=== PATIENT | female | born 1945 | race Caucasian/White ===

== ENCOUNTER → 2016-08-22 | Outpatient (CLI) | payer OTHER ==
[~2016-08-22] MED LIST: AMLO-110 PO; ATEN50TA8; LEVO75TA5 PO; MULT-506 PO; RIZA5TAB10 PO
--- NOTE | 2016-08-22 14:08 | MAMMOGRAPHY REPORT ---
BILATERAL DIGITAL SCREENING MAMMOGRAM TOMOSYNTHESIS WITH CAD: 08/22/2016 CLINICAL HISTORY: Asymptomatic. Personal history of breast cancer. TECHNIQUE: Breast tomosynthesis in addition to standard 2D mammography was performed. Current study was also evaluated with a Computer Aided Detection (CAD) system. COMPARISON: Comparison is made to exams dated: 08/20/2015 mammogram, 08/18/2014 mammogram, 08/15/2013 mammogram, 08/13/2012 mammogram - [facility], 08/12/2011 mammogram, and 07/25/2009 mamm ogram - [facility]. BREAST COMPOSITION: There are scattered areas of fibroglandular density in both breasts. FINDINGS: No suspicious masses, calcifications, or areas of architectural distortion are noted in e ither breast. There has been no significant interval change compared to prior exams. There are stab le postsurgical changes in the left upper outer quadrant from prior lumpectomy. Bilateral benign-ap pearing calcifications are not significantly changed. IMPRESSION: ACR BI-RADS CATEGORY 2: BENIGN There is no mammographic evidence of malignancy. A 1 year screening mammogram is recommended. The p atient will receive written notification of the results. Approximately 10% of breast cancers are not detected with mammography. A negative mammographic repor t should not delay biopsy if a clinically suggestive mass is present. Brianna Sheets M.D. ah/:08/22/2016 08:04:59 Manufacturing Assembler: Judith COSME(Nanda)([place]), [facility] letter sent: Normal 1/2 BI-RADS Code: ACR BI-RADS Category 2: Benign
== END | disposition home or self-care (01) ==
LOC: C.MAMM 07:24
PROVIDERS: ATTEND Surgery
DX: Z12.31 Encounter for screening mammogram for malignant neoplasm of breast (principal); Z85.3 Personal history of malignant neoplasm of breast; Z08 Encounter for follow-up examination after completed treatment for malignant neoplasm

== ENCOUNTER → 2016-09-08 | Outpatient (CLI) | payer OTHER ==
[2016-09-08 12:49] LABS: BASO % 0.5 %; BASO ABS # 0.03 K/uL (0-0.2); COMPLETE YES; EOS % 3.3 %; HEMATOCRIT 42.4 % (37-47); IG% 0.2 %; LYMPH ABS # 1.28 K/uL (1.2-3.4); MEAN CELL VOLUME 94.4 fL (80-100); MEAN CORPUSCULAR HEMOGLOBIN 32.7 pg (25-34); MEAN CORPUSCULAR HGB CONC 34.7 g/dl (32-36); MEAN PLATELET VOLUME 12.3 fL (7.4-10.4); MONO % 6.2 %; NEUT % 67.8 %; PLATELET COUNT 203 K/uL (130-400); RED BLOOD COUNT 4.49 M/uL (4.2-5.4); WHITE BLOOD COUNT 5.81 K/uL (4.8-10.8)
[2016-09-08 12:56] LABS: ALT/SGPT 22 U/L (12-78); BLOOD UREA NITROGEN 19 mg/dl (7-18); BUN/CREATININE RATIO 20.4 (10-20); CALCIUM 9.9 mg/dl (8.5-10.1); CARBON DIOXIDE 27 mmol/L (21-32); CHLORIDE 104 mmol/L (98-107); CHOLESTEROL 182 mg/dl (0-200); CREATININE 0.93 mg/dl (0.60-1.20); GLUCOSE 97 mg/dl (70-99); POTASSIUM 3.4 mmol/L (3.5-5.1); SODIUM 141 mmol/L (136-145); TRIGLYCERIDES 219 mg/dl (0-150); VERY LOW DENSITY LIPOPROT CALC 44 mg/dl
[2016-09-08 13:04] LABS: ALB/GLOB RATIO 1.2 (0.9-2); ALKALINE PHOSPHATASE 117 U/L (45-117); AST/SGOT 16 U/L (15-37); CHOLESTEROL/HDL RATIO 3.4; HDL CHOLESTEROL 54 mg/dl; LDL CHOLESTEROL CALCULATED 84 mg/dl
[2016-09-08 13:13] LABS: URINE APPEARANCE CLEAR (CLEAR); URINE BILIRUBIN NEG (NEG); URINE COLOR YELLOW; URINE EPITHELIAL CELL AUTO 0-5 /lpf (0-5); URINE NITRITE NEG (NEG); URINE PH 8.5 (4.5-7.5); UROBILINOGEN NEG (NEG); ZZUR CULT IF INDIC CLEAN CATCH NO
[2016-09-08 13:21] LABS: MANUAL MICROSCOPIC REQUIRED? NO; REVIEW REQ? NO
--- NOTE | 2016-09-15 12:57 | CODING QUERY MEDICAL NECESSITY ---
SUPPORTING DIAGNOSIS NEEDED A supporting diagnosis is required for the test/procedure performed on this patient in order for us to be reimbursed by the patient's insurance. Please provide a supporting diagnosis for the following test/procedure listed below next to the test name along with your signature. *If there is no additional diagnosis for this patient that would support the following test/procedure please document that below next to the test/procedure. Test(s)/Procedure(s) that require a supporting diagnosis: * VITAMIN D 25-HYDROXY DIAGNOSIS: * DOS: 09/08/16 Provider Signature: Date: Thank you Sharla Dior Health Information Management Once completed, please kindly fax back to [phone] For questions please call [phone]
== END | disposition home or self-care (01) ==
LOC: C.LABBFT 07:58
PROVIDERS: ATTEND Internal Medicine Endocrinology, Diabetes & Metabolism
DX: E06.3 Autoimmune thyroiditis (principal); I31.3 Pericardial effusion (noninflammatory); E78.00 Pure hypercholesterolemia, unspecified; Z86.39 Personal history of other endocrine, nutritional and metabolic disease

== ENCOUNTER → 2016-10-10 | Outpatient (CLI) | payer OTHER | END | disposition home or self-care (01) | LOC: C.LABBFT 10:44 | PROVIDERS: ATTEND Internal Medicine | DX: I31.3 Pericardial effusion (noninflammatory) (principal) ==

== ENCOUNTER → 2016-10-24 | Outpatient (CLI) | payer OTHER ==
--- NOTE | 2016-10-24 13:48 | DIAGNOSTIC IMAGING REPORT ---
RIGHT HAND MIN 3 VIEWS ROUTINE CLINICAL HISTORY: R76.8 LUPE [id number] right hand pain COMPARISON: None. DISCUSSION: The bones are mildly osteopenic. No fractures are visualized. There is minor joint space narrowing at the level of the distal to phalangeal joints. There are no erosive changes. 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 IMPRESSION: 1. No acute fractures 2. No evidence of erosive disease 3. Lunate cyst Electronically signed by: Oscar Willard M.D. 10/24/2016 1:46 PM Dictated Date/Time: 10/24/2016 1:45 PM
[2016-10-24 15:11] LABS: URINE APPEARANCE CLEAR (CLEAR); URINE BILIRUBIN NEG (NEG); URINE COLOR YELLOW; URINE NITRITE NEG (NEG); URINE SPECIFIC GRAVITY 1.007 (1.000-1.030); UROBILINOGEN NEG (NEG)
[2016-10-24 15:12] LABS: MANUAL MICROSCOPIC REQUIRED? NO; REVIEW REQ? NO
[2016-10-29 03:10] LABS: ANTI-CENTROMERE AB <1.0 NEG AI (<1.0 NEG); ANTI-SS-A <1.0 NEG AI (<1.0 NEG); ANTI-SS-B <1.0 NEG AI (<1.0 NEG); DNA ds CRITHIDIA NEGATIVE (NEGATIVE); MYELOPEROXIDASE AB <1.0 AI (<1.0); Sm Antibody <1.0 NEG AI (<1.0 NEG)
[2016-10-29 12:49] LABS: ANA TITER 1:40 TITER (<1:40)
== END | disposition home or self-care (01) ==
LOC: C.RAD1850 13:35
PROVIDERS: ATTEND Internal Medicine Rheumatology
DX: R76.8 Other specified abnormal immunological findings in serum (principal); M79.641 Pain in right hand

== ENCOUNTER 2017-03-22 22:42 | Emergency (ER) | payer OTHER ==
[~2017-03-22] VITALS: Ht 167.6 cm; Wt 68.0 kg
[2017-03-22 22:49] VITALS: TEMP 36.8; Ht 167.6 cm; Wt 68.0 kg
[2017-03-22] MEDS ORDERED: IBUPROFEN 200 MG TAB PO STA (23:18)
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
[2017-03-23 01:23] VITALS: BP 174/99; PULSE 57; O2SAT 98
--- NOTE | 2017-03-23 06:33 | DIAGNOSTIC IMAGING REPORT ---
LEFT HAND MIN 3 VIEWS ROUTINE CLINICAL HISTORY: Left hand pain status post trauma COMPARISON: None. DISCUSSION: No acute fractures or dislocations are visualized. 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 IMPRESSION: No acute fractures or dislocations identified. Electronically signed by: Oscar Willard M.D. 03/23/2017 6:31 AM Dictated Date/Time: 03/23/2017 6:31 AM
== END 2017-03-23 01:47 | disposition home or self-care (01) ==
LOC: C.EDB 22:43 → C.EDD 03-23 01:47
DX: S62.655A Nondisplaced fracture of middle phalanx of left ring finger, initial encounter for closed fracture (principal); V19.3XXA Pedal cyclist (driver) (passenger) injured in unspecified nontraffic accident, initial encounter; Y93.55 Activity, bike riding; I10 Essential (primary) hypertension; E03.9 Hypothyroidism, unspecified; Z79.899 Other long term (current) drug therapy

== ENCOUNTER → 2017-07-09 | Outpatient (CLI) | payer OTHER ==
[2017-07-09 19:00] LABS: BLOOD UREA NITROGEN 18 mg/dl (7-18); CALCIUM 10.2 mg/dl (8.5-10.1); CARBON DIOXIDE 31 mmol/L (21-32); CREATININE 0.95 mg/dl (0.60-1.20); GLUCOSE 95 mg/dl (70-99); POTASSIUM 3.6 mmol/L (3.5-5.1); SODIUM 140 mmol/L (136-145)
== END | disposition home or self-care (01) ==
LOC: C.LABBFT 11:18
PROVIDERS: ATTEND Internal Medicine
DX: E04.2 Nontoxic multinodular goiter (principal); M81.0 Age-related osteoporosis without current pathological fracture; Z86.39 Personal history of other endocrine, nutritional and metabolic disease

== ENCOUNTER → 2017-07-18 | Outpatient (CLI) | payer OTHER | END | disposition home or self-care (01) | LOC: C.LAB1850 08:50 | PROVIDERS: ATTEND Internal Medicine | DX: E83.52 Hypercalcemia (principal) ==

== ENCOUNTER → 2017-07-21 | Outpatient (CLI) | payer OTHER ==
--- NOTE | 2017-07-21 09:24 | DIAGNOSTIC IMAGING REPORT ---
CHEST 2 VIEWS ROUTINE HISTORY: 71 years-old Female COUGH acute cough COMPARISON: Chest radiograph 05/23/2011 TECHNIQUE: PA and lateral views of the chest FINDINGS: The cardiomediastinal and hilar silhouettes are within normal limits. There is no pneumothorax, pleural effusion, focal airspace consolidation or overt pulmonary edema. The bones of the chest appear grossly intact. Degenerative changes are seen within the shoulders and spine. IMPRESSION: No acute process. The above report was generated using voice recognition software. It may contain grammatical, syntax or spelling errors. Electronically signed by: Ivan Padilla M.D. 07/21/2017 9:22 AM Dictated Date/Time: 07/21/2017 9:21 AM
[2017-07-21 10:15] LABS: BASO % 0.2 %; BASO ABS # 0.01 K/uL (0-0.2); EOS % 1.7 %; EOS ABS # 0.08 K/uL (0-0.5); HEMATOCRIT 40.1 % (37-47); HEMOGLOBIN 14.2 g/dL (12.0-16.0); IG# 0.01 K/uL (0.00-0.02); LYMPH % 28.4 %; LYMPH ABS # 1.32 K/uL (1.2-3.4); MEAN CORPUSCULAR HEMOGLOBIN 32.9 pg (25-34); MEAN CORPUSCULAR HGB CONC 35.4 g/dl (32-36); MEAN PLATELET VOLUME 10.8 fL (7.4-10.4); MONO % 9.1 %; MONO ABS # 0.42 K/uL (0.11-0.59); NEUT % 60.4 %; PLATELET COUNT 191 K/uL (130-400); RED CELL DISTRIBUTION WIDTH CV 12.6 % (11.5-14.5); RED CELL DISTRIBUTION WIDTH SD 43.3 fL (36.4-46.3); WHITE BLOOD COUNT 4.64 K/uL (4.8-10.8)
[2017-07-21 10:42] LABS: BLOOD UREA NITROGEN 14 mg/dl (7-18); CALCIUM 9.9 mg/dl (8.5-10.1); CARBON DIOXIDE 30 mmol/L (21-32); CREATININE 0.85 mg/dl (0.60-1.20); GLUCOSE 85 mg/dl (70-99); POTASSIUM 3.4 mmol/L (3.5-5.1); SODIUM 141 mmol/L (136-145)
== END | disposition home or self-care (01) ==
LOC: C.RAD1850 09:12
PROVIDERS: ATTEND Nurse Practitioner
DX: R05 Cough (principal); E83.52 Hypercalcemia

== ENCOUNTER → 2017-08-11 | Outpatient (CLI) | payer OTHER ==
--- NOTE | 2017-08-11 11:26 | DIAGNOSTIC IMAGING REPORT ---
SOFT TISS HEAD/NECK-THYROID CLINICAL HISTORY: 71 years-old Female presenting with E04.2 Multinodular [id number]. TECHNIQUE: Real-time grayscale and color Doppler ultrasound imaging of the thyroid and base of the neck was performed. COMPARISON: 08/17/2014. FINDINGS: Right lobe: Heterogeneous due to multiple thyroid nodules. The right lobe of the thyroid measures 4.7 x 1.3 x 1.6 cm. The largest nodule is heterogeneously hyperechoic, peripherally calcified and measures 1.3 x 0.9 x 0.7 cm, previously 1.2 cm (low suspicion to intermediate suspicion pattern due to coarse calcification). No parenchymal hyperemia. Left lobe: Heterogeneous due to multiple thyroid nodules. The left lobe of the thyroid measures 5.4 x 1.5 x 1.6 cm. The largest nodule is partially cystic, partially solid consistent with a spongiform morphology and measures 1.5 x 1.0 x 1.0 cm, previously 0.9 cm (very low suspicion pattern). No parenchymal hyperemia. Isthmus: The isthmus measures 2 mm in thickness. No nodules. IMPRESSION: Multinodular thyroid. Slight interval increase in size of the largest nodules. Continued follow-up recommended. Electronically signed by: Tung Mendoza M.D. 08/11/2017 11:25 AM Dictated Date/Time: 08/11/2017 11:20 AM
== END | disposition home or self-care (01) ==
LOC: C.ULTR 09:59
PROVIDERS: ATTEND Internal Medicine Endocrinology, Diabetes & Metabolism
DX: E04.2 Nontoxic multinodular goiter (principal)

== ENCOUNTER → 2017-08-24 | Outpatient (CLI) | payer OTHER ==
--- NOTE | 2017-08-24 14:50 | MAMMOGRAPHY REPORT ---
BILATERAL DIGITAL SCREENING MAMMOGRAM TOMOSYNTHESIS WITH CAD: 08/24/2017 CLINICAL HISTORY: Asymptomatic. Personal history of breast cancer. Routine screening. Patient has no complaints. TECHNIQUE: Breast tomosynthesis in addition to standard 2D mammography was performed. Current study was also evaluated with a Computer Aided Detection (CAD) system. COMPARISON: Comparison is made to exams dated: 08/22/2016 mammogram, 08/20/2015 mammogram, 08/18/2014 m ammogram, 08/15/2013 mammogram, 08/13/2012 mammogram - [facility], and 08/12/2011 mammog carmina - [facility]. BREAST COMPOSITION: There are scattered areas of fibroglandular density in both breasts. FINDINGS: There is expected architectural distortion in the upper outer posterior left breast and lef t axillary region, denoting areas of prior surgery. There are benign coarse and rim calcifications i n the left breast. No new suspicious mass, architectural distortion or cluster of suspicious microca lcifications is seen. IMPRESSION: ACR BI-RADS CATEGORY 1: NEGATIVE There is no mammographic evidence of malignancy. A 1 year screening mammogram is recommended. The pa tient will receive written notification of the results. Approximately 10% of breast cancers are not detected with mammography. A negative mammographic report should not delay biopsy if a clinically suggestive mass is present. Brenda Loomis M.D. ay/:08/24/2017 12:32:03 Revenue Tax Specialist: Sabina SMITH)([place]), [facility] letter sent: Normal 1/2 BI-RADS Code: ACR BI-RADS Category 1: Negative
== END ==
LOC: C.MAMM 09:13
PROVIDERS: ATTEND Obstetrics & Gynecology
DX: Z85.3 Personal history of malignant neoplasm of breast (principal); Z12.31 Encounter for screening mammogram for malignant neoplasm of breast

== ENCOUNTER → 2017-09-01 | Outpatient (CLI) | payer OTHER | END | disposition home or self-care (01) | LOC: C.MAMM 13:08 | PROVIDERS: ATTEND Internal Medicine Endocrinology, Diabetes & Metabolism | DX: M81.0 Age-related osteoporosis without current pathological fracture (principal); M85.89 Other specified disorders of bone density and structure, multiple sites ==

== ENCOUNTER → 2017-10-21 | Outpatient (CLI) | payer OTHER ==
[2017-10-21 12:29] LABS: CALCIUM 9.5 mg/dl (8.5-10.1)
[2017-10-21 12:30] LABS: ALBUMIN 3.6 gm/dl (3.4-5.0)
== END | disposition home or self-care (01) ==
LOC: C.LABBFT 08:27
PROVIDERS: ATTEND Internal Medicine Endocrinology, Diabetes & Metabolism
DX: M81.0 Age-related osteoporosis without current pathological fracture (principal)

== ENCOUNTER → 2017-11-10 | Outpatient (CLI) | payer OTHER ==
[2017-11-10 10:41] LABS: CREATININE 1.04 mg/dl (0.60-1.20)
== END | disposition home or self-care (01) ==
LOC: C.LAB 09:15
PROVIDERS: ATTEND Internal Medicine Endocrinology, Diabetes & Metabolism
DX: M81.0 Age-related osteoporosis without current pathological fracture (principal)

== ENCOUNTER → 2017-11-11 | Outpatient (CLI) | payer OTHER ==
[2017-11-11 09:38] LABS: BASO % 0.6 %; BASO ABS # 0.03 K/uL (0-0.2); EOS % 1.3 %; EOS ABS # 0.07 K/uL (0-0.5); HEMATOCRIT 44.3 % (37-47); HEMOGLOBIN 15.6 g/dL (12.0-16.0); IG# 0.01 K/uL (0.00-0.02); LYMPH % 25.6 %; LYMPH ABS # 1.36 K/uL (1.2-3.4); MEAN CELL VOLUME 94.7 fL (80-100); MEAN CORPUSCULAR HEMOGLOBIN 33.3 pg (25-34); MEAN CORPUSCULAR HGB CONC 35.2 g/dl (32-36); MEAN PLATELET VOLUME 11.3 fL (7.4-10.4); MONO % 9.2 %; MONO ABS # 0.49 K/uL (0.11-0.59); NEUT % 63.1 %; NEUT ABS # 3.36 K/uL (1.4-6.5); PLATELET COUNT 185 K/uL (130-400); RED CELL DISTRIBUTION WIDTH CV 12.8 % (11.5-14.5); RED CELL DISTRIBUTION WIDTH SD 44.1 fL (36.4-46.3); WHITE BLOOD COUNT 5.32 K/uL (4.8-10.8)
== END | disposition home or self-care (01) ==
LOC: C.LAB1850 07:36
PROVIDERS: ATTEND Internal Medicine
DX: I10 Essential (primary) hypertension (principal); E78.00 Pure hypercholesterolemia, unspecified

== ENCOUNTER 2022-12-08 05:43 | Inpatient (IN) ==
[2022-12-08] MEDS ORDERED: SODIUM CHLORIDE 0.9% 1000ML 1,000 ML IV SCH (06:00)
[2022-12-08 06:37] LABS: Basophils # (auto) 0.04 K/uL (0-0.2); Basophils % (auto) 0.6 %; Eosinophils # (auto) 0.01 K/uL (0-0.50); Eosinophils % (auto) 0.2 %; Hematocrit (blood only) 45.7 % (37.0-47.0); Hemoglobin 16.1 g/dl (12.0-16.0); Immature Granulocytes # (auto) 0.02 K/uL (0.01-0.20); Immature Granulocytes % (auto) 0.3 %; Lymphocytes # (auto) 0.38 K/uL (1.2-3.4); Lymphocytes % (auto) 5.9 %; Mean Corpuscular Hemoglobin 33.2 pg (25.0-34.0); Mean Corpuscular Hgb Conc 35.2 g/dL (32.0-36.0); Mean Corpuscular Volume 94.2 fL (80.0-100.0); Mean Platelet Volume 11.3 fL (9.4-12.4); Monocytes # (auto) 0.33 K/uL (0.11-0.59); Monocytes % (auto) 5.1 %; Neutrophils # (auto) 5.69 K/uL (1.40-6.50); Neutrophils % (auto) 87.9 %; Platelet Count 130 K/uL (130-400); RDW Coefficient of Variation 12.5 % (11.5-14.5); RDW Standard Deviation 43.3 fL (36.4-46.3); Red Blood Count 4.85 M/uL (4.20-5.40); White Blood Count 6.47 K/ul (4.8-10.8)
--- NOTE | 2022-12-08 06:48 | XRay Report ---
XR chest 1V portable CLINICAL HISTORY: Sepsis TECHNIQUE: Single frontal radiograph of the chest was obtained. Comparison: Comparison is made to chest radiograph 12/10/2020 FINDINGS: No lines and tubes are seen. The cardiomediastinal silhouette is normal. There is increased airspace opacity in the right lower lung. No evidence of pleural effusion or pneumothorax. IMPRESSION: Increasing airspace opacity in the right lower lung may represent atelectasis, pneumonia, and/or aspi ration. ACT 112: Negative or not required by law. Electronically signed by: Holger Leach M.D. 12/08/2022 6:46 AM
[2022-12-08 06:57] LABS: Albumin Level 4.1 gm/dl (3.4-5.0); BUN Creatinine Ratio 15.4 (10-20); Bilirubin Direct 0.2 mg/dl (0-0.2); Bilirubin,Total 0.8 mg/dl (0.2-1.0); Calcium 9.1 mg/dl (8.6-10.3); Creatinine Clr Calc Pharmacy 53.1 ml/min; Est GFR (Non-African American) 61.3 ml/min; Magnesium 2.1 mg/dl (1.7-2.4); Potassium 3.6 mmol/L (3.5-5.1)
[2022-12-08] MEDS ORDERED: cefTRIAXone SODIUM 2,000 MG/70 ML BAG IV STA (07:02)
[2022-12-08 07:03] LABS: Troponin I High Sensitivity 6.8 pg/ml (0-14)
[2022-12-08 07:06] LABS: Appearance Urine Clear (Clear); Bilirubin Urine Negative (Negative); Blood Urine Negative (Negative); Color Urine Yellow; Glucose Urine UA Negative (Negative); Ketones Urine Negative (Negative); Leukocyte Esterase Urine Negative (Negative); Nitrite Urine Negative (Negative); Protein Urine Negative (Negative); Urobilinogen Urine Negative (Negative)
[2022-12-08 07:07] LABS: Procalcitonin 0.48 ng/ml (0-0.5)
[2022-12-08 07:18] LABS: Influenza A virus by PCR Negative (Neg); Influenza B virus by PCR Negative (Neg); RSV by PCR Negative (Neg); SARS CoV2 RNA(COVID-19) Ceph NEGATIVE (Negative)
[2022-12-08 07:37] LABS: Lyme Ab IgG w/WB Rflx Negative (Negative); Lyme Ab IgM w/WB Rflx Negative (Negative)
--- NOTE | 2022-12-08 07:45 | Emergency Department Note ---
Impression & Plan Fever ED Provider Note INFORMANT: Patient and ED PROVIDER(S): Jere Sauceda MD CHIEF COMPLAINT: Fever PLAN: Disposition: Admitted Condition: Good Outpatient prescription management: none Referral: None MEDICAL DECISION MAKING: Patient presented because of fever. A work-up was initiated. On clinical examination she has a bull's-eye rash on the right leg this is concerning for Lyme disease. Patient had cultures obtained. She was empirically given IV Rocephin. She also had a chest x-ray performed and there was a concern for a right lower lobe infiltrate. Patient does have a mild cough. Patient did receive IV doxycycline as well. I discussed possibility of inpatient versus outpatient treatment. Patient was hydrated. Nursing attempted to get the patient up for an ambulatory trial but she was too weak. She was given Tylenol as she spiked a fever. The patient will need further management in the hospital. Consultation was made with the [facility]ist service. Patient was evaluated in the ER admitted for further management. Discussed with manager women After review of the information above and other included data, I feel the patient requires admission. Triage Nursing notes reviewed and agree them. Vital Signs: reviewed and remarkable for fever Prior /Outside records reviewed: none Differential diagnosis: Lyme disease, tickborne illness, viral syndrome, otitis, pharyngitis, pneumonia, influenza, meningitis, urinary tract infection, sepsis, bacteremia, as well as other pathologies. Diagnostics, as interpreted by me: ECG: Twelve-lead ECG reveals a normal sinus rhythm at 94 bpm. Left axis deviation. No ST elevation or depression Cardiac Monitoring: Cardiac monitoring ordered by me: The patient was placed on continuous cardiac monitoring and observed. It revealed a normal sinus rhythm at 95 beats per minute without ectopy or evidence of dysrhythmia. Medical decision rules: none Imaging studies: Chest x-ray shows some mild congestion in the right base. HPI: The patient is a 77 year old female who presents to the Emergency Room with complaints of fever. This started yesterday and is worsening overnight. The patient also notes the following associated symptoms, urinary frequency, cough, increased confusion. Patient does have some mild dementia. The patient has used Tylenol for relieving factors. Current pain is rated as 0/10. also notes the presence of a bull's-eye rash on the right lower leg. Patient does spend a lot of time out in the garden. Pt denies LOC, headache, chills, diaphoresis, visual changes, neck pain, chest pain, breathing difficulties, nausea, vomiting, abdominal pain, back pain, melena, hematochezia, urinary symptoms, numbness, significant weakness, lymphadenopathy, or other complaints. PAST MEDICAL HISTORY: See Below, dementia, UTI PAST SURGICAL HISTORY: See Below, SOCIAL HISTORY: See Below, HOME MEDICATIONS: See Below ALLERGIES: See Below VITALS: See Below PHYSICAL EXAMINATION: GENERAL: Awake, alert, mildly ill -appearing, in no distress HENT: Normocephalic, atraumatic. Oropharynx unremarkable. EYES: Normal conjunctiva. Sclera non-icteric. NECK: Inspection normal. Non-tender. Supple. No nuchal rigidity. FROM. No masses. RESPIRATORY: Clear to auscultation. No wheezes. No rales. Normal respiratory effort. CARDIAC: Normal rate. Normal rhythm. No murmurs. No rubs. Extremities warm and well perfused. Pulses equal. No JVD. GI: Soft, non-distended. No tenderness to palpation. No rebound or guarding. No masses. RECTAL: Deferred. MUSCULOSKELETAL: Atraumatic. Chest examination reveals no tenderness. The back is symmetrical on inspection without obvious abnormality. There is no CVA tenderness to palpation. No joint edema. LOWER EXTREMITIES: Calves are equal size bilaterally and non-tender. No edema. No discoloration. NEURO: Normal sensorium. No sensory or motor deficits noted. SKIN: Patient has a bull's-eye rash on the right calf. No other rash or jaund ice noted. Past Med/Surg History Medical History Adrenal nodule LUPE positive Cardiac tamponade Dementia "Beginning stages" Edema History of COVID-19 12/2020- cough History of hyperparathyroidism Hx of breast cancer (~2007) left breast Hyperlipidemia Hypertension Hypothyroidism Osteoporosis Pericardial effusion 2019 - resolved Sleep apnea Mild - uses oral appliance Surgical History History of "History of surgical treatment for " on CCD History of cataract surgery B/L History of colonoscopy History of lumpectomy of left breast 2 lymph nodes removed also and had radiation History of parathyroid surgery History of wisdom tooth extraction Hx of lumpectomy left lumpectomy S/P eye surgery left S/P pericardiocentesis 08/2020 ([facility])- "Successful ultrasound guided pericardiocentesis with removal of 510 mL of bloody fluid" S/P right rotator cuff repair Family History Father Myocardial infarction COPD (chronic obstructive pulmonary disease) Stroke syndrome Senile dementia Mother Senile dementia Stroke syndrome Peripheral vascular disease Lung disease Aunt Breast cancer Other Coronary heart disease Denies family history of Ovarian cancer Prostate cancer Colorectal cancer Social History Smoking Status: Never smoker Second Hand Exposure: No; Do You Dip or Chew Tobacco: No; Hx Alcohol Use: Yes Alcohol type: wine Alcohol Intake Frequency: 4 or More x per/Week Alcohol Intake Frequency Comment: currently having 1 glass of wine at night Hx Substance Use: No Preferred Language: Singaporean Communication Ability: Effective Visual Impairment: No Limitations Hearing Ability: Use of Hearing Aid Motor Setter Required: No Beliefs That Will Affect Care: None marital status: Current Living Situation: Spouse current occupational status: retired current occupation: retired from occupation as a teacher Feels Safe at Home: Yes Childhood Exposure to Second-Hand Smoke: Yes Diet: regular caffeine: Yes Dental Care, Regularly: Yes Physical Activity Frequency: 3-4 Times per Week Seatbelt Use: always Sunscreen Use: No Assistive Devices: Glasses and Hearing Aid - Bilateral Allergies Allergies Allergy/AdvReac Type Severity Reaction Status Date / Time promethazine Allergy Intermediate delirious, Verified 12/08/22 10:08 couldn't stand topiramate Allergy Intermediate suicidal Verified 12/08/22 10:08 adhesive Allergy Mild BLISTERS Verified 12/08/22 10:08 capsaicin AdvReac Intermediate Diarrhea Verified 12/08/22 10:08 diclofenac AdvReac Intermediate Diarrhea Verified 12/08/22 10:08 lisinopril AdvReac Mild Cough Verified 12/08/22 10:08 pravastatin AdvReac Mild myalgia Verified 12/08/22 10:08 rosuvastatin [From Crestor] AdvReac Mild myalgia Verified 12/08/22 10:08 verapamil AdvReac Mild constipatio Verified 12/08/22 10:08 n Home Meds Home Medications Medication Instructions Recorded Confirmed potassium gluconate 595 mg (99 mg) 595 mg PO DAILY 01/11/19 12/08/22 tablet calcium 600 mg-D3 800 unit-mag11 1 tab PO BID 03/08/19 12/08/22 50 [id number]-[id number].borat tablet (Caltrate 600-D Plus Minerals) multivitamin (One-A-Day Essential 1 tab PO QAM 03/08/19 12/08/22 tablet) ibuprofen 200 mg tablet 600 mg PO DAILY PRN Severe Pain 07/17/22 12/08/22 (Scale Score 7-10) Previous Rx's Medication Instructions Recorded rizatriptan 5 mg disintegrating 5 mg PO DIRECTED PRN Headache 10/08/21 tablet #4 tabs memantine 10 mg tablet 10 mg PO BID 90 days #180 tabs 07/08/22 ezetimibe 10 mg tablet (Zetia) 10 mg PO QAM #90 tabs 08/18/22 levothyroxine 50 mcg tablet 50 mcg PO Q OTHER DAY #45 tabs 09/15/22 levothyroxine 75 mcg tablet 75 mcg PO Q OTHER DAY #45 tabs 09/15/22 losartan 50 mg tablet 50 mg PO QAM hypertension #90 tabs 09/16/22 amlodipine 10 mg tablet 10 mg PO QAM #90 tabs 11/04/22 atenolol 50 mg tablet 75 mg PO BID #270 tabs 11/24/22 Results & Data (ED) Vital Signs Vital Signs - 24 hr 12/08/22 05:51 12/08/22 06:04 12/08/22 06:05 Temperature 37.2 C Temperature Source Oral Pulse Rate 91 H 93 H Pulse Rate [Apical] Respiratory Rate 20 Respiratory Effort / Characteristics Non-Labored Spontaneous Respiratory Depth Normal Respiratory Pattern Regular Blood Pressure 124/64 Blood Pressure [Left Arm] Blood Pressure Mean 84 Blood Pressure Mean [Left Arm] Blood Pressure Position Sitting Blood Pressure Position [Left Arm] Pulse Oximetry 95 95 Oxygen Delivery Method Room Air Room Air Sepsis Recent Fever Within 48 Hours Yes Sepsis New/Unexplained Change in Mental Status N/A Sepsis Action Taken by Nursing No Action Required 12/08/22 06:12 12/08/22 08:10 12/08/22 09:39 Temperature 37.3 C 37.7 C H Temperature Source Oral Oral Pulse Rate Pulse Rate [Apical] 95 H 92 H Respiratory Rate 17 16 Respiratory Effort / Characteristics Non-Labored Spontaneous Respiratory Depth Normal Respiratory Pattern Regular Blood Pressure Blood Pressure [Left Arm] 149/81 H 170/89 H Blood Pressure Mean Blood Pressure Mean [Left Arm] 103 116 Blood Pressure Position Blood Pressure Position [Left Arm] Sitting Pulse Oximetry 95 96 Oxygen Delivery Method Room Air Room Air Sepsis Recent Fever Within 48 Hours Sepsis New/Unexplained Change in Mental Status Sepsis Action Taken by Nursing 12/08/22 10:28 12/08/22 11:04 Temperature 37.7 C H Temperature Source Oral Pulse Rate 90 Pulse Rate [Apical] 89 Respiratory Rate 18 Respiratory Effort / Characteristics Non-Labored Spontaneous Respiratory Depth Normal Respiratory Pattern Regular Blood Pressure Blood Pressure [Left Arm] 125/82 Blood Pressure Mean Blood Pressure Mean [Left Arm] 96 Blood Pressure Position Blood Pressure Position [Left Arm] Pulse Oximetry 93 Oxygen Delivery Method Room Air Sepsis Recent Fever Within 48 Hours Sepsis New/Unexplained Change in Mental Status Sepsis Action Taken by Nursing Laboratory Data 12/08/22 06:05 12/08/22 06:05 Lab Results 12/08/22 12/08/22 12/08/22 Range/Units 06:05 06:05 06:05 WBC 6.47 (4.8-10.8) K/ul RBC 4.85 (4.20-5.40) M/uL Hgb 16.1 H (12.0-16.0) g/dl Hct 45.7 (37.0-47.0) % MCV 94.2 (80.0-100.0) fL MCH 33.2 (25.0-34.0) pg MCHC 35.2 (32.0-36.0) g/dL RDW Std Deviation 43.3 (36.4-46.3) fL RDW Coeff of Mario 12.5 (11.5-14.5) % Plt Count 130 (130-400) K/uL MPV 11.3 (9.4-12.4) fL Immature Gran % (Auto) 0.3 % Neut % (Auto) 87.9 % Lymph % (Auto) 5.9 % Pine % (Auto) 5.1 % Eos % (Auto) 0.2 % Baso % (Auto) 0.6 % Neut # (Auto) 5.69 (1.40-6.50) K/uL Lymph # (Auto) 0.38 L (1.2-3.4) K/uL Pine # (Auto) 0.33 (0.11-0.59) K/uL Eos # (Auto) 0.01 (0-0.50) K/uL Baso # (Auto) 0.04 (0-0.2) K/uL Immature Gran # (Auto) 0.02 (0.01-0.20) K/uL Sodium 139 (136-145) mmol/L Potassium 3.6 (3.5-5.1) mmol/L Chloride 105 (98-107) mmol/L Carbon Dioxide 26 (21-32) mmol/L Anion Gap 8 (3-11) BUN 14 (6-23) mg/dl Creatinine 0.91 (0.6-1.2) mg/dl Est Cr Clr Drug Dosing 53.1 ml/min Est GFR ( Amer) 71.0 ml/min Est GFR (Non-Af Amer) 61.3 ml/min BUN/Creatinine Ratio 15.4 (10-20) Glucose 140 H (70-99(Fasting)) mg/dl Lactate 1.6 (0.4-2.0) mmol/L Calcium 9.1 (8.6-10.3) mg/dl Magnesium 2.1 (1.7-2.4) mg/dl Total Bilirubin 0.8 (0.2-1.0) mg/dl Direct Bilirubin 0.2 (0-0.2) mg/dl AST 95 H (13-39) U/L ALT 79 H (7-52) U/L Alkaline Phosphatase 96 (34-104) U/L Troponin I High Sens 6.8 (0-14) pg/ml Total Protein 7.0 (6.0-8.3) gm/dl Albumin 4.1 (3.4-5.0) gm/dl Procalcitonin (0-0.5) ng/ml Urine Color Urine Appearance (Clear) Urine pH (4.5-7.5) Ur Specific [place] (1.000-1.030) Urine Protein (Negative) Urine Glucose (UA) (Negative) Urine Ketones (Negative) Urine Blood (Negative) Urine Nitrite (Negative) Urine Bilirubin (Negative) Urine Urobilinogen (Negative) Ur Leukocyte Esterase (Negative) Anaplasma Smear See Comment Babesia Smear See Comment Lyme Disease IgG Ab (Negative) Lyme Disease IgM Ab (Negative) SARS-CoV-2 (PCR) (Negative) Influenza Type A (PCR) (Neg) Influenza Type B (PCR) (Neg) RSV (RT-PCR) (Neg) 12/08/22 12/08/22 12/08/22 Range/Units 06:05 06:05 06:45 WBC (4.8-10.8) K/ul RBC (4.20-5.40) M/uL Hgb (12.0-16.0) g/dl Hct (37.0-47.0) % MCV (80.0-100.0) fL MCH (25.0-34.0) pg MCHC (32.0-36.0) g/dL RDW Std Deviation (36.4-46.3) fL RDW Coeff of Mario (11.5-14.5) % Plt Count (130-400) K/uL MPV (9.4-12.4) fL Immature Gran % (Auto) % Neut % (Auto) % Lymph % (Auto) % Pine % (Auto) % Eos % (Auto) % Baso % (Auto) % Neut # (Auto) (1.40-6.50) K/uL Lymph # (Auto) (1.2-3.4) K/uL Pine # (Auto) (0.11-0.59) K/uL Eos # (Auto) (0-0.50) K/uL Baso # (Auto) (0-0.2) K/uL Immature Gran # (Auto) (0.01-0.20) K/uL Sodium (136-145) mmol/L Potassium (3.5-5.1) mmol/L Chloride (98-107) mmol/L Carbon Dioxide (21-32) mmol/L Anion Gap (3-11) BUN (6-23) mg/dl Creatinine (0.6-1.2) mg/dl Est Cr Clr Drug Dosing ml/min Est GFR ( Amer) ml/min Est GFR (Non-Af Amer) ml/min BUN/Creatinine Ratio (10-20) Glucose (70-99(Fasting)) mg/dl Lactate (0.4-2.0) mmol/L Calcium (8.6-10.3) mg/dl Magnesium (1.7-2.4) mg/dl Total Bilirubin (0.2-1.0) mg/dl Direct Bilirubin (0-0.2) mg/dl AST (13-39) U/L ALT (7-52) U/L Alkaline Phosphatase (34-104) U/L Troponin I High Sens (0-14) pg/ml Total Protein (6.0-8.3) gm/dl Albumin (3.4-5.0) gm/dl Procalcitonin 0.48 (0-0.5) ng/ml Urine Color Yellow Urine Appearance Clear (Clear) Urine pH 8.0 H (4.5-7.5) Ur Specific [place] 1.010 (1.000-1.030) Urine Protein Negative (Negative) Urine Glucose (UA) Negative (Negative) Urine Ketones Negative (Negative) Urine Blood Negative (Negative) Urine Nitrite Negative (Negative) Urine Bilirubin Negative (Negative) Urine Urobilinogen Negative (Negative) Ur Leukocyte Esterase Negative (Negative) Anaplasma Smear Babesia Smear Lyme Disease IgG Ab Negative (Negative) Lyme Disease IgM Ab Negative (Negative) SARS-CoV-2 (PCR) NEGATIVE (Negative) Influenza Type A (PCR) Negative (Neg) Influenza Type B (PCR) Negative (Neg) RSV (RT-PCR) Negative (Neg) 12/08/22 Range/Units 07:16 WBC (4.8-10.8) K/ul RBC (4.20-5.40) M/uL Hgb (12.0-16.0) g/dl Hct (37.0-47.0) % MCV (80.0-100.0) fL MCH (25.0-34.0) pg MCHC (32.0-36.0) g/dL RDW Std Deviation (36.4-46.3) fL RDW Coeff of Mario (11.5-14.5) % Plt Count (130-400) K/uL MPV (9.4-12.4) fL Immature Gran % (Auto) % Neut % (Auto) % Lymph % (Auto) % Pine % (Auto) % Eos % (Auto) % Baso % (Auto) % Neut # (Auto) (1.40-6.50) K/uL Lymph # (Auto) (1.2-3.4) K/uL Pine # (Auto) (0.11-0.59) K/uL Eos # (Auto) (0-0.50) K/uL Baso # (Auto) (0-0.2) K/uL Immature Gran # (Auto) (0.01-0.20) K/uL Sodium (136-145) mmol/L Potassium (3.5-5.1) mmol/L Chloride (98-107) mmol/L Carbon Dioxide (21-32) mmol/L Anion Gap (3-11) BUN (6-23) mg/dl Creatinine (0.6-1.2) mg/dl Est Cr Clr Drug Dosing ml/min Est GFR ( Amer) ml/min Est GFR (Non-Af Amer) ml/min BUN/Creatinine Ratio (10-20) Glucose (70-99(Fasting)) mg/dl Lactate (0.4-2.0) mmol/L Calcium (8.6-10.3) mg/dl Magnesium (1.7-2.4) mg/dl Total Bilirubin (0.2-1.0) mg/dl Direct Bilirubin (0-0.2) mg/dl AST (13-39) U/L ALT (7-52) U/L Alkaline Phosphatase (34-104) U/L Troponin I High Sens (0-14) pg/ml Total Protein (6.0-8.3) gm/dl Albumin (3.4-5.0) gm/dl Procalcitonin (0-0.5) ng/ml Urine Color Urine Appearance (Clear) Urine pH (4.5-7.5) Ur Specific [place] (1.000-1.030) Urine Protein (Negative) Urine Glucose (UA) (Negative) Urine Ketones (Negative) Urine Blood (Negative) Urine Nitrite (Negative) Urine Bilirubin (Negative) Urine Urobilinogen (Negative) Ur Leukocyte Esterase (Negative) Anaplasma Smear Cancelled Babesia Smear Cancelled Lyme Disease IgG Ab (Negative) Lyme Disease IgM Ab (Negative) SARS-CoV-2 (PCR) (Negative) Influenza Type A (PCR) (Neg) Influenza Type B (PCR) (Neg) RSV (RT-PCR) (Neg) Administered Medications Discontinued Medications Acetaminophen (Acetaminophen 500 Mg Tab) 1,000 mg PO NOW STA Stop: 12/08/22 10:14 Last Admin: 12/08/22 10:33 Dose: 1,000 mg Documented By: RAMSES Sodium Chloride (Nss 1000ml) 1,000 mls @ 999 mls/hr IV .[id number] GUY Stop: 12/08/22 07:00 Last Infusion: 12/08/22 07:16 Dose: 0 mls/hr Documented By: Admin: 12/08/22 06:14 Dose: 999 mls/hr Documented By: DEJON Ceftriaxone Sodium (Rocephin) 2,000 mg in 70 mls @ 140 mls/hr IV NOW STA Stop: 12/08/22 07:31 Last Infusion: 12/08/22 08:49 Dose: 0 mls/hr Documented By: Admin: 12/08/22 08:05 Dose: 140 mls/hr Documented By: RAMSES Doxycycline Hyclate 100 mg/ (Dextrose) 110 mls @ 50 mls/hr IV NOW STA Stop: 12/08/22 12:24 Last Infusion: 12/08/22 13:34 Dose: 0 mls/hr Documented By: Infusion: 12/08/22 12:00 Dose: 50 mls/hr Documented By: Infusion: 12/08/22 11:38 Dose: 0 mls/hr Documented By: Admin: 12/08/22 10:33 Dose: 50 mls/hr Documented By: RAMSES Imaging Data Radiologist's Impression: Chest X-Ray 12/08/22 05:57 XR chest 1V portable CLINICAL HISTORY: Sepsis TECHNIQUE: Single frontal radiograph of the chest was obtained. Comparison: Comparison is made to chest radiograph 12/10/2020 FINDINGS: No lines and tubes are seen. The cardiomediastinal silhouette is normal. There is increased airspace opacity in the right lower lung. No evidence of pleural effusion or pneumothorax. IMPRESSION: Increasing airspace opacity in the right lower lung may represent atelectasis, pneumonia, and/or aspiration. ACT 112: Negative or not required by law. Electronically signed by: Holger Leach M.D. 12/08/2022 6:46 AM Liver Ultrasound 12/08/22 10:42 US liver CLINICAL HISTORY: ast/alt elevation TECHNIQUE: Multiple real-time sonographic images of the right upper quadrant were obtained. Comparison: None available at the time of this dictation. FINDINGS: The liver is diffusely homogenous with normal contour and echogenicity. There is a complex cyst measuring 2.1 x 1.9 x 2.4 cm. No intrahepatic ductal dilatation is seen. Linear hyperechoic foci with posterior shadowing are identified layering dependently within the gallbladder, which are consistent with gallstones. The gallbladder wall is not thickened. There is no pericholecystic fluid present. A sonographic Tinoco's sign was not elicited by the hygiene assistant. The common duct measures 0.7 cm in diameter at the level of the hepatic artery. Pancreatic cystic lesions are seen measuring 5 and 7 mm, respectively. The right kidney shows normal echogenicity, cortical thickness and renal contour. The right kidney shows no evidence of hydronephrosis or mass. No ascites or free fluid is seen in Woods's pouch. IMPRESSION: 1. No acute abnormalities are seen. Cholelithiasis is seen without evidence of cholecystitis. 2. Pancreatic cystic lesions are seen which may represent IPMN for which nonemergent MRCP follow-up can be performed. 3. Mildly complex hepatic cyst without significant solid component. ACT 112: Positive. There are findings on this exam that require communication between the performing entity and the patient following Patient Test Result Information Act ([place] Act 112) guidelines. Electronically signed by: Holger Leach M.D. 12/08/2022 12:12 PM Discharge Plan Visit Data Chief Complaint: Fever Stated Complaint: UNCONTROLLED FEVER 104,COUGH ED Provider: Jere Sauceda Discharge Problem: Fever Patient Disposition: Admitted As Inpatient Discharge Instructions Interventions: ED Discharge Assessment Last Done: 12/08/22 15:28
[2022-12-08] MEDS ORDERED: DOXYCYCLINE HYCLATE 100 MG in DEXTROSE 5% 100 ML IV STA (10:13)
[2022-12-08] MEDS ORDERED: ACETAMINOPHEN 500 MG TAB PO STA (10:13)
--- NOTE | 2022-12-08 10:41 | History & Physical Report ---
Date of Service December 08, 2022 Assessment & Plan (1) Tick-borne disease: Plan: 77yo presented with increased weakness, fevers, mild elevation in AST/ALT and bullseye rash to her RLE. Temp 102F on Thursday, 100-101 in ER and given dose tylenol Lyme testing initially negative, however may be too early Anaplasmosis smear w/o evidence for such -- PCR pending along w/ babesia Procal 0.48, WBC wnl Given Ceftriaxone/DOxy in ER (infiltrate RLL on CXR, however no sputum pro duction, suspect aspiration pneumonitis given choking w/ fever/chills w/ tylenol administration at home) Also given 1L IVF, will hold off further IVF for now and encourage PO intake. If not having adequate PO intake can add additional fluids Continue Doxy IV BID Antiemetics/antipyretics prn RUQ US liver for eval per supervising provider, however no abd pain on admission. Does have wine at home, tylneol use. Check tylenol level. Monitor LFTs on repeat Blood cultures pending Supportive care PT/OT consultations to be undertaken Monitor labs on repeat (2) Cough: Plan: suspect aspiration pneumonitis rather than pneumonia Ceftriaxone/Doxy in ER -- remains on Doxy as above Incentive spirometer, albuterol HFA prn, supp o2 as needed Monitor CXR in AM/if any worsening SOB/O2 need consider covering for aspiration pneumonia Easy to chew diet ordered -- consult speech if any issues (3) Fever: Plan: suspect 2nd to tick bourne illness as above abx as outlined, monitor cultures trend fever w/ treatment (4) Hypertension: Plan: BP stable 125/82 continue amlodipine 10mg daily, atenolol 75mg BID, losartan 50mg daily consider decreasing amlodipine given baseline swelling LE pending BPs (5) Hypercholesterolemia: Plan: continue ezetimibe 10mg daily (6) Dementia: Plan: follows with Dr Hess, some increased confusion 2nd to infection as above. no focal deficits on exam remains on memantine 10mg bid also added B1 to labs given longstanding issue/wine use at home -- start empiric supp in AM (7) Hypothyroidism: Plan: TSH wnl last month, no need for repeat remains on alternating dose synthroid 50mcg/75mcg (8) Elevated LFTs: Plan: ?elevation 2nd to tick bourne illness/tylenol use/wine at home limit Tylenol 3gm IV daily, check tylenol level - do not suspect need for NAC treatment, did get 4gm tylenol yesterday of note check RUQ US as above, noting no abd pain on exam No elevation in TB/ALP at present Trend LFTs w/ AM labs Plan inpatient stay for abx treatment/supportive care and PT/OT evals as too weak to return home in present condition History of Present Illness Chief Complaint: weakness, fever, cough, urinary frequency Primary Care Provider: Juan Brunner MD 77yo female with mild dementia, hypothyroidism, HTN, HLD, pericardial effusion s/p pericardiocentesis (trivial effusion on most recent ECHO last year in f/u), mild obstructive sleep apnea, anxiety/depression presented for fevers at home along with urinary frequency, cough, increased confusion. Found to have bullseye rash on her RLE, works in garden frequently. Treated with dose IV Ceftriaxone and planned to d/c on PO Doxycycline however was too weak for ambulation to return home at present and will be admitted for abx/monitoring/PT/OT consults and potential discharge home tomorrow depending. CXR noting airspace opacity in the right lower lung, ? atelectasis, PNA and/or aspiration. GIven dose ceftriaxone to cover and again plan was to dc on Doxycycline and cefdinir however needing admission at this time. WBC wnl, temp 37.7C, AST/ALT elevation 95/79 Procal 0.48, blood cultures pending Per patient, at bedside. Had been starting this past , increased weakness/fevers. He had given her tylenol and had improvement but then no further fevers Thursday into thursday morning and then notes temp up to 102F on Thursday around 8-9pm. He then was giving her tylenol and did admit to giving 4 doses of 1000mg in a 24 hour period of time -- Thursday 7am, 1pm, 530pm and around 1145pm. He notes she had the chills. Also noting that when she gets chills she also has a post nasal drip which causes a cough. He notes she did have chills and coughing fit when getting the Tylenol. Discussed abx to cover for Lyme. No chest pain. Patient denies shortness of breath, does have occasional cough, nonproductive. Some LE edema around baseline - states typically a little worse on the left but felt from amlodipine. Mild dementia and follows with Dr Hess. Patient currently alert to person/place/year but not sure of month at present. Answering questions appropriately. No abdominal pain or nausea or exam, or prior issues reported with swallowing/dysphagia. Initial testing negative but may be too early and given bullseye rash to legs appears consistent with tick bourne illness and decision to cover with Doxy/ obtain therapy evaluations and possible dc in the next 48 hours depending her course. She is typically very active and walks [phone] steps daily, reports she does best around [address] steps daily. Code status discussed, full code. ER Course; Given Ceftriaxone 2gm IV, tylenol 1gm IV, NSS 1L. Doxycycline currently running. WBC wnl, temp 37.7C but otherwise vitals stable. Mild elevation AST/ALT. Allergies Allergy/AdvReac Type Severity Reaction Status Date / Time promethazine Allergy Intermediate delirious, Verified 12/08/22 10:08 couldn't stand topiramate Allergy Intermediate suicidal Verified 12/08/22 10:08 adhesive Allergy Mild BLISTERS Verified 12/08/22 10:08 capsaicin AdvReac Intermediate Diarrhea Verified 12/08/22 10:08 diclofenac AdvReac Intermediate Diarrhea Verified 12/08/22 10:08 lisinopril AdvReac Mild Cough Verified 12/08/22 10:08 pravastatin AdvReac Mild myalgia Verified 12/08/22 10:08 rosuvastatin [From Crestor] AdvReac Mild myalgia Verified 12/08/22 10:08 verapamil AdvReac Mild constipatio Verified 12/08/22 10:08 n Home Medications Medication Instructions Recorded Confirmed Type potassium gluconate 595 mg (99 mg) 595 mg PO DAILY 01/11/19 12/08/22 History tablet calcium 600 mg-D3 800 unit-mag11 1 tab PO BID 03/08/19 12/08/22 History 50 qi-fcnt-ontpok-mikhail-s.borat tablet (Caltrate 600-D Plus Minerals) multivitamin (One-A-Day Essential 1 tab PO QAM 03/08/19 12/08/22 History tablet) rizatriptan 5 mg disintegrating 5 mg PO DIRECTED PRN Headache 10/08/21 12/08/22 Rx tablet #4 tabs memantine 10 mg tablet 10 mg PO BID 90 days #180 tabs 07/08/22 12/08/22 Rx ibuprofen 200 mg tablet 600 mg PO DAILY PRN Severe Pain 07/17/22 12/08/22 History (Scale Score 7-10) ezetimibe 10 mg tablet (Zetia) 10 mg PO QAM #90 tabs 08/18/22 12/08/22 Rx levothyroxine 50 mcg tablet 50 mcg PO Q OTHER DAY #45 tabs 09/15/22 12/08/22 Rx levothyroxine 75 mcg tablet 75 mcg PO Q OTHER DAY #45 tabs 09/15/22 12/08/22 Rx losartan 50 mg tablet 50 mg PO QAM hypertension #90 tabs 09/16/22 12/08/22 Rx amlodipine 10 mg tablet 10 mg PO QAM #90 tabs 11/04/22 12/08/22 Rx atenolol 50 mg tablet 75 mg PO BID #270 tabs 11/24/22 12/08/22 Rx Past Med/Surg History Medical History Adrenal nodule LUPE positive Cardiac tamponade Dementia "Beginning stages" Edema History of COVID-19 12/2020- cough History of hyperparathyroidism Hx of breast cancer (~2007) left breast Hyperlipidemia Hypertension Hypothyroidism Osteoporosis Pericardial effusion 2018 - resolved Sleep apnea Mild - uses oral appliance Surgical History History of "History of surgical treatment for " on CCD History of cataract surgery B/L History of colonoscopy History of lumpectomy of left breast 2 lymph nodes removed also and had radiation History of parathyroid surgery History of wisdom tooth extraction Hx of lumpectomy left lumpectomy S/P eye surgery left S/P pericardiocentesis 08/2020 ([facility] "Successful ultrasound guided pericardiocentesis with removal of 510 mL of bloody fluid" S/P right rotator cuff repair Family History Father Myocardial infarction COPD (chronic obstructive pulmonary disease) Stroke syndrome Senile dementia Mother Senile dementia Stroke syndrome Peripheral vascular disease Lung disease Aunt Breast cancer Other Coronary heart disease Denies family history of Ovarian cancer Prostate cancer Colorectal cancer Social History Smoking Status: Never smoker Second Hand Exposure: No; Do You Dip or Chew Tobacco: No; Hx Alcohol Use: No Hx Substance Use: No Preferred Language: Icelandic Communication Ability: Effective Visual Impairment: No Limitations Hearing Ability: Use of Hearing Aid Door To Door Salesman Required: No Beliefs That Will Affect Care: None marital status: Current Living Situation: Spouse current occupational status: retired current occupation: retired from occupation as a teacher Feels Safe at Home: Yes Childhood Exposure to Second-Hand Smoke: Yes Diet: regular caffeine: Yes Dental Care, Regularly: Yes Physical Activity Frequency: 3-4 Times per Week Seatbelt Use: always Sunscreen Use: No Assistive Devices: None Review of Systems Review of Systems: All systems reviewed & are unremarkable except as noted in HPI & below Physical Exam Physical Exam: General: elderly female sitting up in bed, at bedside, NAD HEENT: head normocephalic, atraumatic, mm slightly dry, trachea midline Resp: CTA, no wheezing, fine crackles RML/RLL, occassional cough, on room air CV: RRR, no significant m/r/g, trace b/l LE edema (reported at baseline), pulses palpable, calves NONTENDER GI: +BS, soft, slight distension, NONTENDER : no griffin MSK/Neuro: mild dementia at baseline but alert to person/place/year, not month no facial droop/slurred speech following commands strength decreased throughout, equal Skin: bullseye rash to R medial hawkins, nontender Results & Data Results & Data Vital Signs (Past 12 Hours) Vital Signs Temp Pulse Pulse Resp BP BP Pulse Ox 12/08/22 10:28 90 12/08/22 09:39 37.7 C H 12/08/22 08:10 92 H 16 170/89 H 96 12/08/22 06:12 37.3 C 95 H 17 149/81 H 95 12/08/22 06:05 95 12/08/22 06:04 93 H 12/08/22 05:51 37.2 C 91 H 20 124/64 95 O2 Del Method 12/08/22 10:28 12/08/22 09:39 12/08/22 08:10 Room Air 12/08/22 06:12 Room Air 12/08/22 06:05 Room Air 12/08/22 06:04 12/08/22 05:51 Room Air Laboratory Results 12/08/22 12/08/22 12/08/22 Range/Units 07:16 07:16 07:16 WBC (4.8-10.8) K/ul RBC (4.20-5.40) M/uL Hgb (12.0-16.0) g/dl Hct (37.0-47.0) % MCV (80.0-100.0) fL MCH (25.0-34.0) pg MCHC (32.0-36.0) g/dL RDW Std Deviation (36.4-46.3) fL RDW Coeff of Mario (11.5-14.5) % Plt Count (130-400) K/uL MPV (9.4-12.4) fL Immature Gran % (Auto) % Neut % (Auto) % Lymph % (Auto) % [place] % (Auto) % Eos % (Auto) % Baso % (Auto) % Neut # (Auto) (1.40-6.50) K/uL Lymph # (Auto) (1.2-3.4) K/uL [place] # (Auto) (0.11-0.59) K/uL Eos # (Auto) (0-0.50) K/uL Baso # (Auto) (0-0.2) K/uL Immature Gran # (Auto) (0.01-0.20) K/uL Sodium (136-145) mmol/L Potassium (3.5-5.1) mmol/L Chloride (98-107) mmol/L Carbon Dioxide (21-32) mmol/L Anion Gap (3-11) BUN (6-23) mg/dl Creatinine (0.6-1.2) mg/dl Est Cr Clr Drug Dosing ml/min Est GFR ( Amer) ml/min Est GFR (Non-Af Amer) ml/min BUN/Creatinine Ratio (10-20) Glucose (70-99(Fasting)) mg/dl Lactate (0.4-2.0) mmol/L Calcium (8.6-10.3) mg/dl Magnesium (1.7-2.4) mg/dl Total Bilirubin (0.2-1.0) mg/dl Direct Bilirubin (0-0.2) mg/dl AST (13-39) U/L ALT (7-52) U/L Alkaline Phosphatase (34-104) U/L Troponin I High Sens (0-14) pg/ml Total Protein (6.0-8.3) gm/dl Albumin (3.4-5.0) gm/dl Procalcitonin (0-0.5) ng/ml Urine Color Urine Appearance (Clear) Urine pH (4.5-7.5) Ur Specific [place] (1.000-1.030) Urine Protein (Negative) Urine Glucose (UA) (Negative) Urine Ketones (Negative) Urine Blood (Negative) Urine Nitrite (Negative) Urine Bilirubin (Negative) Urine Urobilinogen (Negative) Ur Leukocyte Esterase (Negative) Anaplasma Smear Cancelled A. phagocytophilum DNA Pending Babesia Smear Cancelled Babesia microti DNA PCR Pending Lyme Disease IgG Ab (Negative) Lyme Disease IgM Ab (Negative) SARS-CoV-2 (PCR) (Negative) Influenza Type A (PCR) (Neg) Influenza Type B (PCR) (Neg) RSV (RT-PCR) (Neg) 12/08/22 12/08/22 12/08/22 Range/Units 06:45 06:05 06:05 WBC (4.8-10.8) K/ul RBC (4.20-5.40) M/uL Hgb (12.0-16.0) g/dl Hct (37.0-47.0) % MCV (80.0-100.0) fL MCH (25.0-34.0) pg MCHC (32.0-36.0) g/dL RDW Std Deviation (36.4-46.3) fL RDW Coeff of Mraio (11.5-14.5) % Plt Count (130-400) K/uL MPV (9.4-12.4) fL Immature Gran % (Auto) % Neut % (Auto) % Lymph % (Auto) % [place] % (Auto) % Eos % (Auto) % Baso % (Auto) % Neut # (Auto) (1.40-6.50) K/uL Lymph # (Auto) (1.2-3.4) K/uL [place] # (Auto) (0.11-0.59) K/uL Eos # (Auto) (0-0.50) K/uL Baso # (Auto) (0-0.2) K/uL Immature Gran # (Auto) (0.01-0.20) K/uL Sodium (136-145) mmol/L Potassium (3.5-5.1) mmol/L Chloride (98-107) mmol/L Carbon Dioxide (21-32) mmol/L Anion Gap (3-11) BUN (6-23) mg/dl Creatinine (0.6-1.2) mg/dl Est Cr Clr Drug Dosing ml/min Est GFR ( Amer) ml/min Est GFR (Non-Af Amer) ml/min BUN/Creatinine Ratio (10-20) Glucose (70-99(Fasting)) mg/dl Lactate (0.4-2.0) mmol/L Calcium (8.6-10.3) mg/dl Magnesium (1.7-2.4) mg/dl Total Bilirubin (0.2-1.0) mg/dl Direct Bilirubin (0-0.2) mg/dl AST (13-39) U/L ALT (7-52) U/L Alkaline Phosphatase (34-104) U/L Troponin I High Sens (0-14) pg/ml Total Protein (6.0-8.3) gm/dl Albumin (3.4-5.0) gm/dl Procalcitonin 0.48 (0-0.5) ng/ml Urine Color Yellow Urine Appearance Clear (Clear) Urine pH 8.0 H (4.5-7.5) Ur Specific [place] 1.010 (1.000-1.030) Urine Protein Negative (Negative) Urine Glucose (UA) Negative (Negative) Urine Ketones Negative (Negative) Urine Blood Negative (Negative) Urine Nitrite Negative (Negative) Urine Bilirubin Negative (Negative) Urine Urobilinogen Negative (Negative) Ur Leukocyte Esterase Negative (Negative) Anaplasma Smear A. phagocytophilum DNA Babesia Smear Babesia microti DNA PCR Lyme Disease IgG Ab Negative (Negative) Lyme Disease IgM Ab Negative (Negative) SARS-CoV-2 (PCR) NEGATIVE (Negative) Influenza Type A (PCR) Negative (Neg) Influenza Type B (PCR) Negative (Neg) RSV (RT-PCR) Negative (Neg) 12/08/22 12/08/22 12/08/22 Range/Units 06:05 06:05 06:05 WBC 6.47 (4.8-10.8) K/ul RBC 4.85 (4.20-5.40) M/uL Hgb 16.1 H (12.0-16.0) g/dl Hct 45.7 (37.0-47.0) % MCV 94.2 (80.0-100.0) fL MCH 33.2 (25.0-34.0) pg MCHC 35.2 (32.0-36.0) g/dL RDW Std Deviation 43.3 (36.4-46.3) fL RDW Coeff of Mario 12.5 (11.5-14.5) % Plt Count 130 (130-400) K/uL MPV 11.3 (9.4-12.4) fL Immature Gran % (Auto) 0.3 % Neut % (Auto) 87.9 % Lymph % (Auto) 5.9 % [place] % (Auto) 5.1 % Eos % (Auto) 0.2 % Baso % (Auto) 0.6 % Neut # (Auto) 5.69 (1.40-6.50) K/uL Lymph # (Auto) 0.38 L (1.2-3.4) K/uL [place] # (Auto) 0.33 (0.11-0.59) K/uL Eos # (Auto) 0.01 (0-0.50) K/uL Baso # (Auto) 0.04 (0-0.2) K/uL Immature Gran # (Auto) 0.02 (0.01-0.20) K/uL Sodium 139 (136-145) mmol/L Potassium 3.6 (3.5-5.1) mmol/L Chloride 105 (98-107) mmol/L Carbon Dioxide 26 (21-32) mmol/L Anion Gap 8 (3-11) BUN 14 (6-23) mg/dl Creatinine 0.91 (0.6-1.2) mg/dl Est Cr Clr Drug Dosing 53.1 ml/min Est GFR ( Amer) 71.0 ml/min Est GFR (Non-Af Amer) 61.3 ml/min BUN/Creatinine Ratio 15.4 (10-20) Glucose 140 H (70-99(Fasting)) mg/dl Lactate 1.6 (0.4-2.0) mmol/L Calcium 9.1 (8.6-10.3) mg/dl Magnesium 2.1 (1.7-2.4) mg/dl Total Bilirubin 0.8 (0.2-1.0) mg/dl Direct Bilirubin 0.2 (0-0.2) mg/dl AST 95 H (13-39) U/L ALT 79 H (7-52) U/L Alkaline Phosphatase 96 (34-104) U/L Troponin I High Sens 6.8 (0-14) pg/ml Total Protein 7.0 (6.0-8.3) gm/dl Albumin 4.1 (3.4-5.0) gm/dl Procalcitonin (0-0.5) ng/ml Urine Color Urine Appearance (Clear) Urine pH (4.5-7.5) Ur Specific [place] (1.000-1.030) Urine Protein (Negative) Urine Glucose (UA) (Negative) Urine Ketones (Negative) Urine Blood (Negative) Urine Nitrite (Negative) Urine Bilirubin (Negative) Urine Urobilinogen (Negative) Ur Leukocyte Esterase (Negative) Anaplasma Smear See Comment A. phagocytophilum DNA Babesia Smear See Comment Babesia microti DNA PCR Lyme Disease IgG Ab (Negative) Lyme Disease IgM Ab (Negative) SARS-CoV-2 (PCR) (Negative) Influenza Type A (PCR) (Neg) Influenza Type B (PCR) (Neg) RSV (RT-PCR) (Neg) Diagnostic Findings Chest X-Ray 12/08/22 05:57 XR chest 1V portable CLINICAL HISTORY: Sepsis TECHNIQUE: Single frontal radiograph of the chest was obtained. Comparison: Comparison is made to chest radiograph 12/10/2020 FINDINGS: No lines and tubes are seen. The cardiomediastinal silhouette is normal. There is increased airspace opacity in the right lower lung. No evidence of pleural effusion or pneumothorax. IMPRESSION: Increasing airspace opacity in the right lower lung may represent atelectasis, pneumonia, and/or aspiration. ACT 112: Negative or not required by law. Electronically signed by: Holger Leach M.D. 12/08/2022 6:46 AM Supervising Physician Co-Signing Physician Notes I personally saw and examined the patient. I verified all [place] points and agree with Madelyn Bustamante PA-C with the following exceptions and/or additions: 77 year old female presents to the ER with fever, urinary frequency for the last 4 days. Feeling her normal self and well prior to this. UA non infective appearing. Target rash noted on RLE. O/E Ill appearing, A&Ox3, HS RRR, no murmurs, Chest CTAB, Abdo SNT, no pitting edema, rash on right lower extremity with developing target appearance A/P Bull's eye rash with fever and mildly elevated LFTs - concern for tick borne disease. Agree with doxycycline 100mg IV BID Mildly elevated LFTs - no abdominal pain on exam, liver US with no acute abnormalities. Pancreatic cyst lesions - consider non emergent MRCP for follow up PG Care Time/CCT Total # of Minutes Spent Total Time Spent with Patient: Total time spent is greater than 50% in coordination of care (as documented) at patient's floor/unit and/or counseling patient: Coding Level of Care Code 89474 INT INP/OBS CARE 375MIN Diagnoses Tick-borne disease B88.2 Cough R05 Fever R50.9 Hypertension I10 Hypercholesterolemia E78.00 Dementia F03.90 Hypothyroidism E03.9 Elevated LFTs R79.89
--- NOTE | 2022-12-08 12:13 | Ultrasound Report ---
US liver CLINICAL HISTORY: ast/alt elevation TECHNIQUE: Multiple real-time sonographic images of the right upper quadrant were obtained. Comparison: None available at the time of this dictation. FINDINGS: The liver is diffusely homogenous with normal contour and echogenicity. There is a complex cyst measu ring 2.1 x 1.9 x 2.4 cm. No intrahepatic ductal dilatation is seen. Linear hyperechoic foci with po sterior shadowing are identified layering dependently within the gallbladder, which are consistent wi th gallstones. The gallbladder wall is not thickened. There is no pericholecystic fluid present. A s onographic Tinoco's sign was not elicited by the powder carrier. The common duct measures 0.7 cm in di ameter at the level of the hepatic artery. Pancreatic cystic lesions are seen measuring 5 and 7 mm, respectively. The right kidney shows normal echogenicity, cortical thickness and renal contour. The right kidney sh ows no evidence of hydronephrosis or mass. No ascites or free fluid is seen in Woods's pouch. IMPRESSION: 1. No acute abnormalities are seen. Cholelithiasis is seen without evidence of cholecystitis. 2. Pancreatic cystic lesions are seen which may represent IPMN for which nonemergent MRCP follow-up can be performed. 3. Mildly complex hepatic cyst without significant solid component. ACT 112: Positive. There are findings on this exam that require communication between the performing entity and the patient following Patient Test Result Information Act ([place] Act 112) guidelines. Electronically signed by: Holger Leach M.D. 12/08/2022 12:12 PM
[2022-12-08] MEDS ORDERED: ONDANSETRON INJ 2 MG/ML 2 ML VIAL IV PRN (16:19)
[2022-12-08] MEDS ORDERED: ALBUTEROL HFA 8 GM INHALER INH PRN (16:19)
[2022-12-08] MEDS ORDERED: LEVOTHYROXINE SODIUM 50 MCG TABLET PO ONE (16:49)
[2022-12-08] MEDS: ACETAMINOPHEN 1,000 MG/100 ML VIAL IV PRN ×2 (16:50→21:50)
[2022-12-08] MEDS ORDERED: ACETAMINOPHEN 1,000 MG/100 ML VIAL IV PRN (18:00)
[2022-12-08] MEDS: CALCIUM 600MG + VIT D 400 IU TAB PO SCH (20:23)
[2022-12-08] MEDS: MEMANTINE HCL 10 MG TAB PO SCH (20:23)
[2022-12-08] MEDS: ATENOLOL 25 MG TABLET PO SCH (20:24)
[2022-12-08] MEDS: DOXYCYCLINE HYCLATE 100 MG in DEXTROSE 5% 100 ML IV SCH (21:48)
[2022-12-09] MEDS ORDERED: LEVOTHYROXINE SODIUM 75 MCG TABLET PO SCH (06:30)
[2022-12-09 06:35] LABS: Hematocrit (blood only) 39.1 % (37.0-47.0); Hemoglobin 14.3 g/dl (12.0-16.0); Mean Corpuscular Hgb Conc 36.6 g/dL (32.0-36.0); Mean Corpuscular Volume 90.3 fL (80.0-100.0); Mean Platelet Volume 11.3 fL (9.4-12.4); Platelet Count 107 K/uL (130-400); RDW Coefficient of Variation 12.4 % (11.5-14.5); RDW Standard Deviation 41.1 fL (36.4-46.3); Red Blood Count 4.33 M/uL (4.20-5.40); White Blood Count 6.96 K/ul (4.8-10.8)
[2022-12-09 07:00] LABS: Albumin Globulin Ratio 1.3 (0.9-2); Albumin Level 3.3 gm/dl (3.4-5.0); BUN Creatinine Ratio 17.6 (10-20); Bilirubin,Total 1.5 mg/dl (0.2-1.0); Calcium 8.4 mg/dl (8.6-10.3); Creatinine Clr Calc Pharmacy 68.4 ml/min; Est GFR (African American) 98.5 ml/min; Globulin 2.5 gm/dl (2.5-4.0); Potassium 3.2 mmol/L (3.5-5.1); Total Protein 5.8 gm/dl (6.0-8.3)
[2022-12-09] MEDS: ACETAMINOPHEN 1,000 MG/100 ML VIAL IV PRN (07:58)
[2022-12-09] MEDS ORDERED: POTASSIUM CHLORIDE / WTR 20 MEQ/100 ML PLCT IV STA (08:45)
--- NOTE | 2022-12-09 08:47 | Hospitalist Progress Note ---
Date of Service December 09, 2022 Assessment & Plan (1) Tick-borne disease: Plan: 77yo presented with increased weakness, fevers, mild elevation in AST/ALT and bullseye rash to her RLE. Temp 102F on Thursday, 100-101 in ER and given dose tylenol Lyme testing initially negative, however may be too early Anaplasmosis smear w/o evidence for such -- PCR pending along w/ babesia Procal 0.48, WBC wnl Given Ceftriaxone/DOxy in ER (infiltrate RLL on CXR, however no sputum pro duction, suspect aspiration pneumonitis given choking w/ fever/chills w/ tylenol administration at home) Also given 1L IVF, will hold off further IVF for now and encourage PO intake. If not having adequate PO intake can add additional fluids Continue Doxy IV BID Antiemetics/antipyretics prn RUQ US liver with gallstones but no evidence of cholecystitis, CBD 7mm, complex liver cyst and possible IPMN Check MRI/MRCP for completeness Blood cultures pending Supportive care PT/OT consultations to be undertaken Monitor labs on repeat LFTs increased today compared to yesterday - repeat in AM (2) Cough: Plan: suspect aspiration pneumonitis rather than pneumonia Ceftriaxone/Doxy in ER -- remains on Doxy as above Incentive spirometer, albuterol HFA prn, supp o2 as needed Patient is in no respiratory distress and saturating 99% on RA Easy to chew diet ordered -- consult speech if any issues (3) Fever: Plan: suspect 2nd to tick bourne illness as above abx as outlined, monitor cultures trend fever w/ treatment (4) Hypertension: Plan: Chronic, stable continue amlodipine 10mg daily, atenolol 75mg BID, losartan 50mg daily consider decreasing amlodipine given baseline swelling LE pending BPs BP 152/77 (5) Hypercholesterolemia: Plan: Chronic stable continue ezetimibe 10mg daily (6) Dementia: Plan: Chronic stable follows with Dr Hess, some increased confusion 2nd to infection as above. no focal deficits on exam remains on memantine 10mg bid (7) Hypothyroidism: Plan: Chronic, stable TSH wnl last month, no need for repeat remains on alternating dose synthroid 50mcg/75mcg (8) Elevated LFTs: Plan: ?elevation 2nd to tick bourne illness/tylenol use/wine at home LFT higher today compared with yesterday T Bili 1.5 (0.8), AST 238 (95), ALT 263 (79), AP 141 (96) discontinued tylenol Await MRI/MRCP Trend LFTs w/ AM labs Plan inpatient stay for abx treatment/supportive care and PT/OT evals as too weak to return home in present condition Admission and Anticipated Discharge Date Admission Date: December 08, 2022 Subjective Patient was awake sitting up in recliner visiting with her family. She states she is feeling better today compared to yesterday. She states the bullseye rash on her right leg has improved, she still has left thigh/leg discomfort. She denies any swelling of the right leg or any injury. She had a negative doppler test. Review of Systems Review of Systems: All other ROS negative unless stated + above Constitutional: + fatigue and + weakness; no fever, no chills and no anorexia Eyes: no blind spots, no diplopia and no eye pain Respiratory: no cough, no dyspnea, no hemoptysis and no wheezing Cardiovascular: no chest pain, no dyspnea, no syncope and no calf pain Gastrointestinal: no abdominal pain, no nausea, no vomiting, no dysphagia and no change in bowel habits Genitourinary: no dysuria, no urinary frequency, no urinary hesitancy and no urinary urgency Musculoskeletal: + stiffness, + myalgia and + body aches Integumentary: + rash; no boil, no new lesions, no pruritus and no yellowing of the skin Neurologic: no falls, no paralysis, no numbness, no restless legs and no syncope Physical Exam Constitutional: WD/WN, vitals as above Neck: trachea midline, no thyromegaly Respiratory: normal respiratory effort, lungs clear to auscultation Cardiovascular: RRR, no murmur, no edema Gastrointestinal (Abdomen): normal bowel sounds, soft, nontender, no hepatosplenomegaly Skin: bulls eye rash left medial calf Psychiatric: A+Ox3, euthymic affect Results & Data Results & Data Vital Signs (Past 12 Hours) Vital Signs Temp Pulse Resp BP Pulse Ox O2 Del Method 12/09/22 07:36 37.1 C 88 16 144/72 H 96 Room Air Laboratory Results Abnormal lab results 12/09/22 12/09/22 Range/Units 05:51 05:51 MCHC 36.6 H (32.0-36.0) g/dL Plt Count 107 L (130-400) K/uL Sodium 134 L (136-145) mmol/L Potassium 3.2 L (3.5-5.1) mmol/L Glucose 121 H (70-99(Fasting)) mg/dl Calcium 8.4 L (8.6-10.3) mg/dl Total Bilirubin 1.5 H D (0.2-1.0) mg/dl AST 238 H (13-39) U/L ALT 263 H (7-52) U/L Alkaline Phosphatase 141 H (34-104) U/L Total Protein 5.8 L (6.0-8.3) gm/dl Albumin 3.3 L (3.4-5.0) gm/dl Diagnostic Findings Liver Ultrasound 12/08/22 10:42 US liver CLINICAL HISTORY: ast/alt elevation TECHNIQUE: Multiple real-time sonographic images of the right upper quadrant were obtained. Comparison: None available at the time of this dictation. FINDINGS: The liver is diffusely homogenous with normal contour and echogenicity. There is a complex cyst measuring 2.1 x 1.9 x 2.4 cm. No intrahepatic ductal dilatation is seen. Linear hyperechoic foci with posterior shadowing are identified layering dependently within the gallbladder, which are consistent with gallstones. The gallbladder wall is not thickened. There is no pericholecystic fluid present. A sonographic Tinoco's sign was not elicited by the marine equipment engineer. The common duct measures 0.7 cm in diameter at the level of the hepatic artery. Pancreatic cystic lesions are seen measuring 5 and 7 mm, respectively. The right kidney shows normal echogenicity, cortical thickness and renal contour. The right kidney shows no evidence of hydronephrosis or mass. No ascites or free fluid is seen in Woods's pouch. IMPRESSION: 1. No acute abnormalities are seen. Cholelithiasis is seen without evidence of cholecystitis. 2. Pancreatic cystic lesions are seen which may represent IPMN for which nonemergent MRCP follow-up can be performed. 3. Mildly complex hepatic cyst without significant solid component. ACT 112: Positive. There are findings on this exam that require communication between the performing entity and the patient following Patient Test Result Information Act ([place] Act 112) guidelines. Electronically signed by: Holger Leach M.D. 12/08/2022 12:12 PM PG Care Time/CCT Total # of Minutes Spent Total Time Spent with Patient: Total time spent is greater than 50% in coordination of care (as documented) at patient's floor/unit and/or counseling patient: Coding Level of Care Code 82386 SUB INP/OBS CARE 1/25MIN Diagnoses Tick-borne disease B88.2 Cough R05 Fever R50.9 Hypertension I10 Hypercholesterolemia E78.00 Dementia F03.90 Hypothyroidism E03.9 Elevated LFTs R79.89
[2022-12-09] MEDS ORDERED: MULTIVITAMIN TAB PO SCH (09:00)
[2022-12-09] MEDS ORDERED: NON-FORMULARY MEDICATION (Potassium Gluconate 595 mg (99 mg) tablet) PO SCH (09:00)
--- NOTE | 2022-12-09 09:20 | Ultrasound Report ---
ULTRASOUND LEFT LOWER EXTREMITY VENOUS CLINICAL HISTORY: Left leg pain and swelling. COMPARISON STUDY: No priors. TECHNIQUE: Real-time, grayscale, and color Doppler sonography of the deep veins of the left lower ext remity was performed from the inguinal crease to the calf. Compression and augmentation were utilized . FINDINGS: There is no sonographic evidence of deep venous thrombosis identified in the left lower ext remity. The common femoral, superficial femoral, and popliteal veins are patent and normally compress ible. The greater saphenous vein and the profunda femoris vein at the junction with the common femora l vein are clear. The visualized calf veins are patent. IMPRESSION: There is no sonographic evidence of deep venous thrombosis identified in the left lower e xtremity. ACT 112: Negative or not required by law. Electronically signed by: Luisito Zacarias M.D. 12/09/2022 9:19 AM
[2022-12-09] MEDS: DOXYCYCLINE HYCLATE 100 MG in DEXTROSE 5% 100 ML IV SCH ×2 (09:41→23:11)
[2022-12-09] MEDS: ATENOLOL 25 MG TABLET PO SCH ×2 (09:41→20:42)
[2022-12-09] MEDS: CALCIUM 600MG + VIT D 400 IU TAB PO SCH ×2 (09:41→20:41)
[2022-12-09] MEDS: MEMANTINE HCL 10 MG TAB PO SCH ×2 (09:42→20:41)
[2022-12-09] MEDS: LOSARTAN POTASSIUM 50 MG TAB PO SCH (09:42)
[2022-12-09] MEDS: EZETIMIBE 10 MG TABLET PO SCH (09:42)
[2022-12-09] MEDS: amLODIPine BESYLATE 5 MG TAB PO SCH (09:42)
[2022-12-09] MEDS: THIAMINE HCL 100 MG TAB PO SCH (09:42)
[2022-12-09] MEDS: POTASSIUM CHLORIDE / WTR 10 MEQ/100 ML PLCT IV SCH ×3 (11:46→15:00)
--- NOTE | 2022-12-10 05:16 | Electrocardiogram Report ---
Test Reason : Blood Pressure : / mmHG Vent. Rate : 094 BPM Atrial Rate : 094 BPM P-R Int : 162 ms QRS Dur : 088 ms QT Int : 380 ms P-R-T Axes : 057 -53 041 degrees QTc Int : 475 ms Normal sinus rhythm Possible Left atrial enlargement Left axis deviation Abnormal ECG When compared with ECG of 18-JUL-2022 15:46, Nonspecific T wave abnormality now evident in Inferior leads Confirmed by Carlos Bautista ([id number]) on 12/10/2022 5:16:22 AM Referred By: REFERRED SELF Confirmed By:Carlos Bautista
[2022-12-10] MEDS ORDERED: LEVOTHYROXINE SODIUM 50 MCG TABLET PO ONE (06:30)
[2022-12-10] MEDS ORDERED: LEVOTHYROXINE SODIUM 50 MCG TABLET PO SCH (06:30)
[2022-12-10 07:54] LABS: Basophils # (auto) 0.02 K/uL (0-0.2); Basophils % (auto) 0.5 %; Eosinophils # (auto) 0.13 K/uL (0-0.50); Eosinophils % (auto) 3.1 %; Hematocrit (blood only) 40.5 % (37.0-47.0); Hemoglobin 14.3 g/dl (12.0-16.0); Immature Granulocytes # (auto) 0.01 K/uL (0.01-0.20); Immature Granulocytes % (auto) 0.2 %; Lymphocytes # (auto) 1.21 K/uL (1.2-3.4); Mean Corpuscular Hemoglobin 32.7 pg (25.0-34.0); Mean Corpuscular Hgb Conc 35.3 g/dL (32.0-36.0); Mean Corpuscular Volume 92.7 fL (80.0-100.0); Mean Platelet Volume 12.1 fL (9.4-12.4); Monocytes # (auto) 0.56 K/uL (0.11-0.59); Monocytes % (auto) 13.4 %; Neutrophils # (auto) 2.24 K/uL (1.40-6.50); Neutrophils % (auto) 53.8 %; Platelet Count 132 K/uL (130-400); RDW Coefficient of Variation 12.7 % (11.5-14.5); RDW Standard Deviation 43.3 fL (36.4-46.3); Red Blood Count 4.37 M/uL (4.20-5.40); White Blood Count 4.17 K/ul (4.8-10.8)
--- NOTE | 2022-12-10 08:13 | Magnetic Resonance Report ---
MR MRCP CLINICAL HISTORY: rising LFTs with abnormal U/S liver TECHNIQUE: Multiplanar multisequence MR images of the abdomen were obtained, as per MRCP protocol. . COMPARISON: Comparison is made to liver ultrasound 12/08/2022, CT chest 11/19/2020, and PET/CT 09/02/[address] abdomen pelvis 09/20/2015 FINDINGS: Lower chest: No acute abnormality Liver: Hepatic cysts are seen. Gallbladder and biliary tree: Cholelithiasis is seen without evidence of cholecystitis. No intra- or extrahepatic biliary ductal dilation. Pancreas: Numerous cystic lesions are seen measuring up to 10 mm in diameter. These do demonstrate si debranch connections to the main pancreatic duct. Spleen: Unremarkable. Adrenals: Unremarkable. Kidneys and ureters: A left renal cyst is seen. Bowel: Unremarkable. Lymph nodes Retroperitoneal: Unremarkable. Mesenteric: Unremarkable. Peritoneum: Normal Vessels: Unremarkable. Abdominal wall: Unremarkable. Bones: Unremarkable. IMPRESSION: 1. Pancreatic cystic lesions are compatible with IPMN. According to Fukuoka criteria, MRCP can be pe rformed in 6 months, then every 2 years if there is no change. 2. Hepatic cyst. 3. Cholelithiasis without cholecystitis. 4. Additional findings as above. ACT 112: Negative or not required by law. Electronically signed by: Holger Leach M.D. 12/10/2022 8:12 AM
[2022-12-10 08:17] LABS: Albumin Level 3.4 gm/dl (3.4-5.0); Bilirubin Direct 0.3 mg/dl (0-0.2); Bilirubin,Total 0.9 mg/dl (0.2-1.0); Total Protein 5.9 gm/dl (6.0-8.3)
[2022-12-10] MEDS ORDERED: DOXYCYCLINE HYCLATE 100 MG CAP PO SCH (09:00)
[2022-12-10] MEDS: EZETIMIBE 10 MG TABLET PO SCH (09:31)
[2022-12-10] MEDS: amLODIPine BESYLATE 5 MG TAB PO SCH (09:31)
[2022-12-10] MEDS: LOSARTAN POTASSIUM 50 MG TAB PO SCH (09:32)
[2022-12-10] MEDS: THIAMINE HCL 100 MG TAB PO SCH (09:32)
[2022-12-10] MEDS: ATENOLOL 25 MG TABLET PO SCH (09:32)
[2022-12-10] MEDS: MEMANTINE HCL 10 MG TAB PO SCH (09:32)
--- NOTE | 2022-12-10 10:46 | Discharge Summary ---
Date of Service December 10, 2022 Admission HPI Per Admitting Provider 77yo female with mild dementia, hypothyroidism, HTN, HLD, pericardial effusion s/p pericardiocentesis (trivial effusion on most recent ECHO last year in f/u), mild obstructive sleep apnea, anxiety/depression presented for fevers at home along with urinary frequency, cough, increased confusion. Found to have bullseye rash on her RLE, works in garden frequently. Treated with dose IV Ceftriaxone and planned to d/c on PO Doxycycline however was too weak for ambulation to return home at present and will be admitted for abx/monitoring/PT/OT consults and potential discharge home tomorrow depending. CXR noting airspace opacity in the right lower lung, ? atelectasis, PNA and/or aspiration. GIven dose ceftriaxone to cover and again plan was to dc on Doxycycline and cefdinir however needing admission at this time. WBC wnl, temp 37.7C, AST/ALT elevation 95/79 Procal 0.48, blood cultures pending Per patient, at bedside. Had been starting this past , increased weakness/fevers. He had given her tylenol and had improvement but then no further fevers Thursday into thursday morning and then notes temp up to 102F on Thursday around 8-9pm. He then was giving her tylenol and did admit to giving 4 doses of 1000mg in a 24 hour period of time -- Thursday 7am, 1pm, 530pm and around 1145pm. He notes she had the chills. Also noting that when she gets chills she also has a post nasal drip which causes a cough. He notes she did have chills and coughing fit when getting the Tylenol. Discussed abx to cover for Lyme. No chest pain. Patient denies shortness of breath, does have occasional cough, nonproductive. Some LE edema around baseline - states typically a little worse on the left but felt from amlodipine. Mild dementia and follows with Dr Hess. Patient currently alert to person/place/year but not sure of month at present. Answering questions appropriately. No abdominal pain or nausea or exam, or prior issues reported with swallowing/dysphagia. Initial testing negative but may be too early and given bullseye rash to legs appears consistent with tick bourne illness and decision to cover with Doxy/obtain therapy evaluations and possible dc in the next 48 hours depending her course. She is typically very active and walks 5007-7772 steps daily, reports she does best around 74657 steps daily. Code status discussed, full code. ER Course; Given Ceftriaxone 2gm IV, tylenol 1gm IV, NSS 1L. Doxycycline currently running. WBC wnl, temp 37.7C but otherwise vitals stable. Mild elevation AST/ALT. Admission Exam Per Admitting Provider General: elderly female sitting up in bed, at bedside, NAD HEENT: head normocephalic, atraumatic, mm slightly dry, trachea midline Resp: CTA, no wheezing, fine crackles RML/RLL, occassional cough, on room air CV: RRR, no significant m/r/g, trace b/l LE edema (reported at baseline), pulses palpable, calves NONTENDER GI: +BS, soft, slight distension, NONTENDER : no griffin MSK/Neuro: mild dementia at baseline but alert to person/place/year, not month no facial droop/slurred speech following commands strength decreased throughout, equal Skin: bullseye rash to R medial hawkins, nontender Principal Diagnosis erythema migrans rash with myalgias and arthralgias Elevated LFTs IPMN pancreas Discharge Exam Constitutional WD/WN, vitals as above Neck trachea midline, no thyromegaly Respiratory normal respiratory effort, lungs clear to auscultation Cardiovascular RRR, no murmur, no edema Gastrointestinal (Abdomen) normal bowel sounds, soft, nontender, no hepatosplenomegaly Skin bulls eye rash right posterior medial calf Psychiatric A+Ox3, euthymic affect Discharge Data Allergies Allergy/AdvReac Type Severity Reaction Status Date / Time promethazine Allergy Intermediate delirious, Verified 12/08/22 10:08 couldn't stand topiramate Allergy Intermediate suicidal Verified 12/08/22 10:08 adhesive Allergy Mild BLISTERS Verified 12/08/22 10:08 capsaicin AdvReac Intermediate Diarrhea Verified 12/08/22 10:08 diclofenac AdvReac Intermediate Diarrhea Verified 12/08/22 10:08 lisinopril AdvReac Mild Cough Verified 12/08/22 10:08 pravastatin AdvReac Mild myalgia Verified 12/08/22 10:08 rosuvastatin [From Crestor] AdvReac Mild myalgia Verified 12/08/22 10:08 verapamil AdvReac Mild constipatio Verified 12/08/22 10:08 n Consultations 12/08/22 10:45 ED Decision to Admit Stat Ordered Studies 12/08/22 10:42 US liver Routine IMPRESSION: 1. No acute abnormalities are seen. Cholelithiasis is seen without evidence of cholecystitis. 2. Pancreatic cystic lesions are seen which may represent IPMN for which nonemergent MRCP follow-up can be performed. 3. Mildly complex hepatic cyst without significant solid component. 12/09/22 US venous doppler LE LT Routine IMPRESSION: There is no sonographic evidence of deep venous thrombosis identified in the left lower extremity. 12/09/22 15:35 MRI MRCP [MR MRCP] Routine IMPRESSION: 1. Pancreatic cystic lesions are compatible with IPMN. According to Fukuoka criteria, MRCP can be performed in 6 months, then every 2 years if there is no change. 2. Hepatic cyst. 3. Cholelithiasis without cholecystitis. 4. Additional findings as above. Hospital Course (1) Tick-borne disease: 77yo presented with increased weakness, fevers, mild elevation in AST/ALT and bullseye rash to her RLE. Temp 102F on Thursday, 100-101 in ER and given dose tylenol Lyme testing initially negative, however may be too early Anaplasmosis smear w/o evidence for such -- PCR pending along w/ babesia Procal 0.48, WBC wnl Given Ceftriaxone/DOxy in ER (infiltrate RLL on CXR, however no sputum production, suspect aspiration pneumonitis given choking w/ fever/chills w/ tylenol administration at home) Also given 1L IVF, will hold off further IVF for now and encourage PO intake. If not having adequate PO intake can add additional fluids Continue Doxy IV BID Antiemetics/antipyretics prn RUQ US liver with gallstones but no evidence of cholecystitis, CBD 7mm, complex liver cyst and possible IPMN Check MRI/MRCP for completeness Blood cultures pending Supportive care PT/OT consultations to be undertaken Monitor labs on repeat LFTs appear to be trending downward (2) Cough: suspect aspiration pneumonitis rather than pneumonia Ceftriaxone/Doxy in ER -- remains on Doxy as above Incentive spirometer, albuterol HFA prn, supp o2 as needed Patient is in no respiratory distress and saturating 99% on RA Easy to chew diet ordered -- consult speech if any issues (3) Fever: suspect 2nd to tick bourne illness as above abx as outlined, monitor cultures trend fever w/ treatment (4) Hypertension: Chronic, stable continue amlodipine 10mg daily, atenolol 75mg BID, losartan 50mg daily consider decreasing amlodipine given baseline swelling LE pending BPs BP 153/81 (5) Hypercholesterolemia: Chronic stable continue ezetimibe 10mg daily (6) Dementia: Chronic stable follows with Dr Hess, some increased confusion 2nd to infection as above. no focal deficits on exam remains on memantine 10mg bid (7) Hypothyroidism: Chronic, stable TSH wnl last month, no need for repeat remains on alternating dose synthroid 50mcg/75mcg (8) Elevated LFTs: ?elevation 2nd to tick bourne illness/tylenol use/wine at home LFTs trending down T Bili 0.9 (1.5) (0.8), AST 144 (238) (95), ALT 227 (263) (79), AP 219 (141) (96) discontinued tylenol MRI/MRCP 1. Pancreatic cystic lesions are compatible with IPMN. According to Fukuoka criteria, MRCP can be performed in 6 months, then every 2 years if there is no change. 2. Hepatic cyst. 3. Cholelithiasis without cholecystitis F/up with PCP and repeat LFTs 1 week Likely need repeat MRI in 6 months for possible IPMN Total Time Total Time Spent Total Time Spent (In Minutes): 35 Discharge Plan Discharge Items Patient Disposition: Home - Self-Care Reason For Visit: WEAKNESS, FEVER, BULLSEYE RASH Discharge Diagnosis: erythema migran rash, myalgias, elevated lfts, IPMN Condition on Discharge: Good Activity: Resume your previous activity Exercise/Sports: Gradually increase as tolerated Driving/Machine Use: Resume 1 day after discharge Weightbearing: Full weightbearing Non-emergency contact: Primary Care Provider Call non-emergency contact if: you have any medication questions, your symptoms worsen, your temperature is above 101.5 and your wound has increased redness Follow-up/Referrals: Juan Brunner MD [Primary Care Provider] - Diet: Heart Healthy Diet Texture: Easy to Chew Ambulatory Orders: Hepatic Function (Liver) Panel (Routine) Timeframe: 1 Week Location: Determined by Patient Ordered By: Ema Cook Attending Provider Instructions: You were admitted with weakness and a rash on right calf and left leg pain. Dopper study of left leg was normal and rash on right leg appeared to be a classic lyme disease bulls eye rash and your were started on IV Doxycycline and then changed over to oral pills. You will need to complete a 10 day coarse of the doxy You also had elevated liver tests and had an U/S and MRI The studies revealed liver cysts and also pancreatic cysts likely what is called IPMN. You should get a repeat MRI in 6 months to be sure the cysts are not changing and then in 2 years after that. This can be scheduled through your family doctor. You also should get repeat Liver blood test in 1 week and follow up with your family doctor in 1-2 weeks. Pending Studies at Discharge: Yes Studies:: Vitamin B1 level, chaffeeris, Babesia PCR, Phagocytophilum DNA Stand-Alone Forms: My [facility] Medications and DC Order Prescriptions: New doxycycline hyclate 100 mg Capsule 100 mg PO BID Qty: 16 0RF Continued memantine 10 mg tablet 10 mg PO BID 90 Days Qty: 180 1RF ezetimibe [Zetia] 10 mg tablet 10 mg PO QAM Qty: 90 3RF levothyroxine 50 mcg tablet 50 mcg PO Q OTHER DAY Qty: 45 3RF Rx Instructions: 50 mcg PO; alternate with 75 mcg every other day levothyroxine 75 mcg tablet 75 mcg PO Q OTHER DAY Qty: 45 3RF Rx Instructions: 75 mcg PO EVERY OTHER DAY ALTERNATING WITH 50MCG; losartan 50 mg tablet 50 mg PO QAM Qty: 90 3RF amlodipine 10 mg tablet 10 mg PO QAM Qty: 90 3RF atenolol 50 mg tablet 75 mg PO BID Qty: 270 3RF potassium gluconate 595 mg (99 mg) tablet 595 mg PO DAILY rizatriptan 5 mg tablet,disintegrating 5 mg PO DIRECTED PRN (Reason: Headache) Qty: 4 3RF Rx Instructions: 5 mg PO AT ONSET OF HEADACHE. MAY REPEAT EVERY 2 HOURS PRN. MAXIUM 3 TABLETS IN 24 HOURS; multivitamin [One-A-Day Essential] tablet 1 tab PO QAM Caltrate 600-D Plus Minerals 600 mg calcium- 800 unit-50 mg tablet 1 tab PO BID Rx Instructions: take 1 1/2 tab bid ibuprofen 200 mg Tablet 600 mg PO DAILY PRN (Reason: Severe Pain (Scale Score 7-10)) Discharge Orders: Discharge Order (Routine); Ordered 12/10/22 Ordered By: Ema Freeman Admission Data Admit Date/Time: 12/08/22 11:07 Attending Provider: Steven Chris Admit Provider: Chet Connelly Primary Care Provider: Juan Brunner Other Providers: Chet Connelly Coding Level of Care Code 82716 INP/OBS DISCH >30 MIN Diagnoses Tick-borne disease B88.2 Cough R05 Fever R50.9 Hypertension I10 Hypercholesterolemia E78.00 Dementia F03.90 Hypothyroidism E03.9 Elevated LFTs R79.89 Time Spent (min) 35
[2022-12-10] MEDS ORDERED: CALCIUM 600MG + VIT D 400 IU TAB PO SCH (11:00)
[2022-12-10] MEDS ORDERED: MULTIVITAMIN TAB PO SCH (12:00)
[2022-12-11 03:22] LABS: Babesia microti DNA Not Detected (Not Detected)
[2022-12-12 17:07] LABS: Ehrlichia chaff DNA Bld Negative (Negative)
[2022-12-12 23:57] LABS: Ehrlichia chaff IgG Ab <1:64 (<1:64); Ehrlichia chaff IgM Ab <1:20 (<1:20)
== END 2022-12-10 12:45 | disposition home or self-care (01) | DRG 865 ==
LOC: ED 05:43 → 3E 11:07 → SUATTDRO 11:07 → 3E 15:28
DX: A26.0 Cutaneous erysipeloid; Z79.899 Other long term (current) drug therapy; E03.9 Hypothyroidism, unspecified; Z88.8 Allergy status to other drugs, medicaments and biological substances; G47.33 Obstructive sleep apnea (adult) (pediatric); A93.8 Other specified arthropod-borne viral fevers; Z79.890 Hormone replacement therapy; D13.6 Benign neoplasm of pancreas; I10 Essential (primary) hypertension; E78.00 Pure hypercholesterolemia, unspecified; F41.8 Other specified anxiety disorders; F03.90 Unspecified dementia, unspecified severity, without behavioral disturbance, psychotic disturbance, mood disturbance, and anxiety; K86.2 Cyst of pancreas; Z20.822 Contact with and (suspected) exposure to COVID-19; J69.0 Pneumonitis due to inhalation of food and vomit